=== PATIENT | male | born 1955 | race Caucasian/White ===

== ENCOUNTER 2017-01-21 12:54 | Outpatient (CLI) | payer OTHER ==
[2017-01-21 13:26] LABS: EOSINOPHILS % 4.4 % (0.0-6.8); LYMPHOCYTES # 1.8 # k/uL (0.6-4.0); MEAN CORPUSCULAR HEMOGLOBIN 29.3 pg (28.0-34.0); MONOCYTES # 0.4 # k/uL (0.0-0.9); MONOCYTES % 5.6 % (0.0-11.0); NEUTROPHILS # 3.9 # k/uL (1.4-7.7)
[2017-01-21 15:02] LABS: eGFR (African) > 60; eGFR (Non-African) > 60
== END 2017-01-21 12:55 ==
LOC: LAB 12:54
PROVIDERS: ATTEND Family Medicine
DX: K42.9 Umbilical hernia without obstruction or gangrene (principal); Z01.818 Encounter for other preprocedural examination
CPT/HCPCS: 36415; 80053; 85025